=== PATIENT | female | born 2000 | race Caucasian/White ===

== ENCOUNTER 2025-01-02 02:15 | Emergency (ER) | payer OTHER, SELFPAY ==
[2025-01-02 02:16] VITALS: BP 138/76; PULSE 121; RESP 20; TEMP 36.4; O2SAT 100
--- NOTE | 2025-01-02 02:22 | ED.EAR ---
HPI - Ear Problem General Chief complaint: Ear Stated complaint: Ear Problem Time Seen by Provider: 01/02/25 02:22 Source: patient Mode of arrival: ambulatory Limitations: no limitations History of Present Illness HPI Narrative: 24-year-old female with no past medical history presents to the ED with a 1 day history of -- right ear pain -- decreased hearing the patient has been itching in the right ear following which she has been attempting to clean it. subsequently she developed severe pain. No ear discharge. Fever. MD Complaint: ear pain Location: right ear Duration: constant Severity: severe Relieving factors: nothing Exacerbating factors: nothing Discharge from ear: Reports no Associated symptoms ear: decreased hearing Treatment prior to arrival: attempt at ear wax removal Related Data Allergies Allergy/AdvReac Type Severity Reaction Status Date / Time No Known Allergies Allergy Verified 01/02/25 02:18 Review of Systems Review of Systems: All systems reviewed & are unremarkable except as noted in HPI and below Exam Const: General: no acute distress Nutritional Appearance: well nourished Orientation/consciousness: patient oriented x3 Limitations: no limitations HENMT: Head: normal to inspection Ears: Abnormal EAC present ( Right ear canal is tender. Ear canal is swollen. Left ear canal is norm) and TM abnormal ( unable to visualize the tympanic membrane on both sides. ) Face/Nose/Sinus: Normal external nose present Mouth: Yes Normal oral and palatal mucosa present and Yes lip normal Teeth and gingiva: dentition normal Throat: posterior oropharynx normal Eyes: Conjunctivae: conjunctivae normal Pupils: Equal, round and reactive pupils present EOM: EOMs intact bilaterally Direct Ophthalmoscopy: no photophobia Neck: Neck: normal visual inspection and lymphadenopathy ( Right upper cervical lymphadenopathy which is tender) Chest: Chest palpation & inspection: normal inspection of the chest Resp: Effort & Inspection: normal respiratory effort Auscultation: clear to auscultation bilaterally Cardio: Rate: regular rate Rhythm: regular rhythm GI: Auscultation: normal bowel sounds Other: no tenderness/ rigidity / rebound. : General: Yes no CVA tenderness Back/Spine/Pelvis: Back: no CVA tenderness Skin: General skin exam: normal color Rashes: no rashes Wounds: no wounds Neuro: General: patient oriented x3, moves all extremities, no meningeal signs, no focal motor deficits and CN's II-XI intact bilaterally Cranial nerves: Yes Nystagmus not present Speech: normal speech Gait exam (Neuro): Normal gait present Extrem: General: normal to inspection and no clubbing, cyanosis or edema Psych: Mental Status: mental status grossly normal Affect: normal affect Attitude: cooperative Course Course Emergency Course: Right otitis externa Vital Signs Vital signs: Vital Signs Temperature 36.4 C 01/02/25 02:16 Pulse Rate 121 H 01/02/25 02:16 Respiratory Rate 20 01/02/25 02:16 Blood Pressure 138/76 01/02/25 02:16 Pulse Oximetry 01/02/25 02:16 Oxygen Delivery Room Air 01/02/25 02:16 Temperature 36.4 C 01/02/25 02:16 Pulse Rate 121 H 01/02/25 02:16 Respiratory Rate 01/02/25 02:16 Blood Pressure 138/76 01/02/25 02:16 Pulse Oximetry 01/02/25 02:16 Oxygen Delivery Room Air 01/02/25 02:16 Medical Decision Making MDM Narrative Medical decision making narrative: right otitis externa Differential Diagnosis Differential Diagnosis: otitis media Vital Signs Vital Signs: Vital Signs Temperature 36.4 C 01/02/25 02:16 Pulse Rate 121 H 01/02/25 02:16 Respiratory Rate 01/02/25 02:16 Blood Pressure 138/76 01/02/25 02:16 Pulse Oximetry 01/02/25 02:16 Oxygen Delivery Room Air 01/02/25 02:16 Temperature 36.4 C 01/02/25 02:16 Pulse Rate 121 H 01/02/25 02:16 Respiratory Rate 01/02/25 02:16 Blood Pressure 138/76 01/02/25 02:16 Pulse Oximetry 01/02/25 02:16 Oxygen Delivery Room Air 01/02/25 02:16 Discharge Plan Discharge Clinical Impression: Otitis externa Patient Disposition: Home Condition: Stable Instructions: Antibiotic Form, Swimmer's Ear (ED) Patient Language: Polish Prescriptions: New amoxicillin 500 mg capsule 1,000 mg PO Q12H Qty: 30 0RF Follow-up/Referrals: UNKNOWN,DOCTOR [Primary Care Provider] - Time of Disposition: 02:33
--- OUTSIDE RECORDS SUMMARY | 2025-01-02 02:28 | XMS_ITS ---
Author Organization Unknown Address [address] [place] [phone] Phone Care Team Providers Care Statistician Applied Name Role Phone SIRENA Yeung Attending Unavailable JESSICA MCCLAIN CRNA Unavailable NO PCP Primary Unavailable Immunization Immunization Date Status Additional Notes Code Code System MMR 2001 Completed 03 CVX MMR 03/07/2005 Completed 03 CVX IPV 2000 Completed 10 CVX IPV 2000 Completed 10 CVX IPV 2000 Completed 10 CVX IPV 03/07/2005 Completed 10 CVX DTaP 2000 Completed 20 CVX DTaP 2000 Completed 20 CVX DTaP 2000 Completed 20 CVX DTaP 05/03/2001 Completed 20 CVX DTaP 03/07/2005 Completed 20 CVX varicella 2001 Completed 21 CVX varicella 04/23/2013 Completed 21 CVX Hib-Hep B 2000 Completed 51 CVX Hib-Hep B 2000 Completed 51 CVX Hib-Hep B 05/03/2001 Completed 51 CVX HPV, quadrivalent 02/20/2013 Completed 62 C VX HPV, quadrivalent 04/23/2013 Completed 62 C VX HPV, quadrivalent 08/27/2013 Completed 62 C VX Hep A, ped/adol, 2 dose 02/20/2013 Completed 83 CVX Hep A, ped/adol, 2 dose 08/27/2013 Completed 83 CVX Tdap 02/16/2011 Completed 115 CVX Novel [id number] 05/07/2009 Completed 127 CVX Novel [id number] 06/04/2009 Completed 127 CVX Meningococcal MCV4O 02/20/2013 Completed 136 CVX Results TEST URINE - Colle ct Date/Time: 10/03/2024 11:23 [facility] ID: [id number] [place], [place], [id number] LOINC: Test Value Unit Reference Range Code Code System Flag URINE PREG NEGATIVE Social History Type Status Start Date End Date Code Code Syst em Sex Female Vital Signs Vital Sign Value Unit [place] Value [place] Unit Date/Time Recent/Initial? Code Code System Body Mass Index 34.45 kg/m2 10/03/2024 13:23 Most Recent 71887 -5 LOINC Body Mass Index 35.28 kg/m2 09/27/2024 12:59 Initial 45433 -5 LOINC Systolic Blood Pressure 125 mm[Hg] 10/03/2024 13:11 Initial 8480- 6 LOINC Diastolic Blood Pressure 73 mm[Hg] 10/03/2024 13:11 Initial 8462- 4 LOINC Body Surface Area 2.08 m2 10/03/2024 13:23 Most Recent 3140- 1 LOINC Body Surface Area 2.10 m2 09/27/2024 12:59 Initial 3140- 1 LOINC Height 165.100 0 cm 65.00 in 10/03/2024 13:23 Most Recent 8302- 2 LOINC Height 165.100 0 cm 65.00 in 09/27/2024 12:59 Initial 8302- 2 LOINC O2 Saturation 96 % 2024 13:11 Initial 41926 -5 LOINC Pulse 82.0 /min 10/03/2024 13:11 Initial 8867- 4 LOINC Respiration 16 /min 10/04/19 13:11 Initial 9279- 1 LOINC Temperature 36.7 Ayesha 98.0 F 10/04/19 13:11 Initial 8310- 5 LOINC Weight 93.89 kg 207.00 lbs 10/03/2024 13:23 Most Recent 16822 -7 LOINC Weight 96.16 kg 212.00 lbs 09/27/2024 12:59 Initial 62598 -7 LOINC Medications Medication Start Date End Date Route Frequency Dose Code Code System Medication Instructions Home Meds Multivitamin Oral Tablet 10/03/2024 Unknown ORAL ONCE A DAY 1 unit(s) RxNorm TAKE 1 E ACH ORAL ONCE A DAY Hospital Discharge Instructions Should you have any questions prior to discharge, please contact a member of your healthcare team. If you have left the hospital and have any questions, please contact your primary care physician. Reason For Referral No Data Found Procedures Procedure Name Date Status Code Code Syste m Anesthesia for lower intesti nal endoscopic procedures, endoscope introduce 10/03/2024 completed 92054 CPT Colonoscopy, flexible; diagn ostic, including collection of specimen(s) by 10/03/2024 completed 79757 CPT History of tonsillectomy completed [id number] SNOMEDCT Allergies and Adverse Reactions Allergy Substance Reaction Severity Start Date Concern Status Co de Code System No Known Allergies Active [id number] SNO MED-CT Plan of Treatment Colonoscopy 10/03/2024 Encounters Encounter Diagnosis Start Date Code Code Sys tem Melena 10/03/2024 SNOMED-CT Personal Care Team Section Procedures Notes
--- OUTSIDE RECORDS SUMMARY | 2025-01-02 02:28 | XMS_ITS ---
Author Organization Unknown Address [address] [place] [phone] Phone Care Team Providers Care Classroom Instructor Name Role Phone DAYA Carmen Attending Unavailable NO PCP Primary Unavailable Immunization Immunization [...] CVX Tdap 02/16/2011 Completed 115 CVX Novel [id number] 05/07/2009 Completed 127 CVX Novel [id number] 06/04/2009 Completed 127 CVX Meningococcal MCV4O 02/20/2013 Completed 136 CVX Social History Type Status Start Date End Date Code Code Syst em Sex Female Medications Medication Start Date End Date Route [...] physician. Reason For Referral No Data Found Allergies and Adverse Reactions Allergy Substance Reaction Severity Start Date Concern Status Co de Code System No Known Allergies Active [id number] SNO MED-CT Plan of Treatment Colonoscopy 10/03/2024 Personal Care Team Section
[2025-01-02] MEDS: HYDROcodone/acetaminophen (*CRX) 10-325 MG TABLET 1 TAB PO (02:40)
[2025-01-02] MEDS: NEOMYCIN/POLYMYXIN/HYDROCORT OT SUSP 10 ML BTL (*BKC) 3 DROP RIGHT EAR (02:40)
== END 2025-01-02 03:10 | disposition home or self-care (01) ==
PROVIDERS: Emergency Provider Internal Medicine Critical Care Medicine
DX: H60.91 Unspecified otitis externa, right ear (principal)
CPT/HCPCS: 99283; A9270